=== PATIENT | female | born 1990 | race African-American/Black ===

== ENCOUNTER 2017-08-05 17:40 | Emergency (ER) | payer OTHER ==
[2017-08-05] MEDS: IV NORMAL SALINE 1000ML BAG 1,000 ML IV ×2 (18:48)
[2017-08-05] MEDS: ONDANSETRON PF 4 MG/2 ML VIAL. IV ×2 (18:48)
[2017-08-05 18:49] LABS: BASO % 0 % (0-3); EOS % 0 % (0-3); HEMATOCRIT 40.3 % (36.0-47.0); HEMOGLOBIN 13.5 g/dL (12.0-15.5); LYMPH # 0.8 x10^3/uL (1.0-4.8); LYMPH % 8 % (24-48); MEAN CORPUSCULAR HEMOGLOBIN 27 pg (25-35); MEAN CORPUSCULAR HGB CONC 34 g/dL (31-37); MEAN CORPUSCULAR VOLUME 82 fL (79-100); MONO # 0.3 x10^3/uL (0.0-1.1); MONO % 3 % (0-9); NEUT # 9.1 x10^3uL (1.8-7.7); NEUT % 89 % (31-73); PLATELET COUNT 335 x10^3/uL (140-400); RED BLOOD COUNT 4.94 x10^6/uL (3.50-5.40); RED CELL DISTRIBUTION WIDTH 16.4 % (11.5-14.5); WHITE BLOOD COUNT 10.2 x10^3/uL (4.0-11.0)
[2017-08-05] MEDS: FAMOTIDINE 20 MG/2 ML VIAL IVP ×2 (18:49)
[2017-08-05 18:50] LABS: ADD MAN DIFF? YES
[2017-08-05 18:58] LABS: ANION GAP 18 (6-14); BLOOD UREA NITROGEN 8 mg/dL (7-20); BUN/CREATININE RATIO 8 (6-20); CALCIUM 9.6 mg/dL (8.5-10.1); CARBON DIOXIDE 20 mmol/L (21-32); CHLORIDE 100 mmol/L (98-107); GFR 80.5; GLUCOSE 139 mg/dL (70-99); POTASSIUM 3.8 mmol/L (3.5-5.1); SODIUM 138 mmol/L (136-145)
[2017-08-05 19:04] LABS: ALBUMIN 3.7 g/dL (3.4-5.0); ALBUMIN/GLOBULIN RATIO 0.7 (1.0-1.7); ALK PHOS 100 U/L (46-116); ALT (SGPT) 22 U/L (14-59); AST (SGOT) 25 U/L (15-37); LIPASE 48 U/L (73-393); TOTAL BILIRUBIN 0.3 mg/dL (0.2-1.0); TOTAL PROTEIN 8.7 g/dL (6.4-8.2)
[2017-08-05 19:19] LABS: % BANDS 1 % (0-9); % LYMPHS 6 % (24-48); % MONOS 1 % (0-10); % SEGS 92 % (35-66); PLT ESTIMATE ADEQUATE (ADEQUATE); TOXIC VACUOLATION SLIGHT
[2017-08-05] MEDS: LIDO:MAALOX:DONNATAL 1:1:1 15 ML SINGLE DOSE SWSW ×2 (19:41)
[2017-08-05] MEDS: KETOROLAC 30 MG/ML INJ. IV ×2 (19:41)
[2017-08-05] MEDS: fentaNYL PF VIAL 100 MCG/2 ML VIAL IV ×2 (20:24)
== END 2017-08-05 21:26 | disposition home or self-care (01) ==
LOC: ER 17:40
DX: A08.4 Viral intestinal infection, unspecified (principal)
CPT/HCPCS: 36415; 71045; 80053; 83690; 85007; 85025; 93005; 96361; 96374; 96375; 99285-25; J1885; J2060; J2405; J3010; J7030; S0028

== ENCOUNTER 2018-01-25 15:41 | Emergency (ER) | payer OTHER ==
[2018-01-25 17:14] LABS: URINE HCG POC HCG NEGATIVE (Negative)
[2018-01-25 17:19] LABS: BASO # 0.1 x10^3/uL (0.0-0.2); BASO % 1 % (0-3); EOS % 0 % (0-3); HEMATOCRIT 41.4 % (36.0-47.0); HEMOGLOBIN 13.7 g/dL (12.0-15.5); LYMPH # 1.2 x10^3/uL (1.0-4.8); LYMPH % 11 % (24-48); MEAN CORPUSCULAR HEMOGLOBIN 27 pg (25-35); MEAN CORPUSCULAR HGB CONC 33 g/dL (31-37); MEAN CORPUSCULAR VOLUME 82 fL (79-100); MONO # 0.3 x10^3/uL (0.0-1.1); MONO % 3 % (0-9); NEUT # 9.8 x10^3uL (1.8-7.7); NEUT % 86 % (31-73); PLATELET COUNT 365 x10^3/uL (140-400); RED BLOOD COUNT 5.04 x10^6/uL (3.50-5.40); RED CELL DISTRIBUTION WIDTH 17.3 % (11.5-14.5); WHITE BLOOD COUNT 11.3 x10^3/uL (4.0-11.0)
[2018-01-25 17:20] LABS: ADD MAN DIFF? YES
[2018-01-25] MEDS: ONDANSETRON PF 4 MG/2 ML VIAL. IV (17:20)
[2018-01-25] MEDS: IV NORMAL SALINE 1000ML BAG 1,000 ML IV (17:20)
[2018-01-25 17:21] LABS: BILIRUBIN,URINE NEGATIVE (NEG); CLARITY,URINE CLEAR; COLOR,URINE YELLOW; GLUCOSE,URINE NEGATIVE (NEG); NITRITE,URINE NEGATIVE (NEG); PROTEIN,URINE 100 mg/dL (NEG-TRACE); UROBILINOGEN,URINE 0.2 mg/dL (0.2 mg/dL)
[2018-01-25] MEDS: PANTOPRAZOLE IV PUSH 40 MG VIAL. IVP (17:22)
[2018-01-25 17:25] LABS: BACTERIA,URINE 0 /HPF (0-FEW); RBC,URINE 0 /HPF (0-2); SQUAMOUS EPITHELIAL CELL,UR FEW /LPF
[2018-01-25 17:34] LABS: AMPHETAMINE/METHAMPHETAMINE NEG (NEG); BARBITURATES NEG (NEG); BENZODIAZEPINES NEG (NEG); CANNABINOIDS POS (NEG); COCAINE NEG (NEG); ETHANOL, URINE NEG (NEG); METHADONE NEG (NEG); OPIATES NEG (NEG); PHENCYCLIDINE NEG (NEG)
[2018-01-25 17:35] LABS: ANION GAP 18 (6-14); BLOOD UREA NITROGEN 11 mg/dL (7-20); BUN/CREATININE RATIO 11 (6-20); CALCIUM 9.8 mg/dL (8.5-10.1); CARBON DIOXIDE 20 mmol/L (21-32); CHLORIDE 102 mmol/L (98-107); GFR 80.5; GLUCOSE 119 mg/dL (70-99); POTASSIUM 3.4 mmol/L (3.5-5.1); SODIUM 140 mmol/L (136-145)
[2018-01-25 17:36] LABS: % LYMPHS 14 % (24-48); % MONOS 2 % (0-10); % SEGS 84 % (35-66); PLT ESTIMATE ADEQUATE (ADEQUATE)
[2018-01-25 17:36] LABS: ETHANOL < 10 mg/dL (0-10)
[2018-01-25 17:37] LABS: ANISOCYTOSIS SLIGHT
[2018-01-25 17:40] LABS: ALBUMIN 3.9 g/dL (3.4-5.0); ALBUMIN/GLOBULIN RATIO 0.7 (1.0-1.7); ALK PHOS 93 U/L (46-116); ALT (SGPT) 23 U/L (14-59); AST (SGOT) 19 U/L (15-37); LIPASE 67 U/L (73-393); TOTAL BILIRUBIN 0.6 mg/dL (0.2-1.0); TOTAL PROTEIN 9.2 g/dL (6.4-8.2)
[2018-01-25] MEDS: LIDO:MAALOX 1:1 20 ML SINGLE DOSE. SWSW (18:41)
[2018-01-25] MEDS: fentaNYL PF VIAL 100 MCG/2 ML VIAL IV (18:41)
== END 2018-01-25 19:30 | disposition home or self-care (01) ==
LOC: ER 15:41
DX: T62.91XA Toxic effect of unspecified noxious substance eaten as food, accidental (unintentional), initial encounter (principal); K29.00 Acute gastritis without bleeding; Y92.89 Other specified places as the place of occurrence of the external cause
CPT/HCPCS: 36415; 80053; 80307; 81001; 81025; 83690; 85007; 85025; 96361; 96374; 96375; 99285-25; C9113; G0480; J2405; J3010; J7030

== ENCOUNTER 2018-01-26 22:25 | Inpatient (IN) | payer OTHER ==
[2018-01-26 23:13] LABS: BILIRUBIN,URINE SMALL (NEG); CLARITY,URINE CLEAR; COLOR,URINE YELLOW; GLUCOSE,URINE NEGATIVE (NEG); NITRITE,URINE NEGATIVE (NEG); PH,URINE 6.5; PROTEIN,URINE NEGATIVE (NEG-TRACE)
[2018-01-26 23:18] LABS: BACTERIA,URINE MODERATE /HPF (0-FEW); RBC,URINE OCC /HPF (0-2); SQUAMOUS EPITHELIAL CELL,UR MOD /LPF
[2018-01-26 23:19] LABS: BARBITURATES NEG (NEG); BENZODIAZEPINES NEG (NEG); CANNABINOIDS POS (NEG); COCAINE NEG (NEG); METHADONE NEG (NEG); OPIATES NEG (NEG); PHENCYCLIDINE NEG (NEG)
[2018-01-26 23:20] LABS: AMPHETAMINE/METHAMPHETAMINE NEG (NEG); ETHANOL, URINE NEG (NEG)
[2018-01-26 23:29] LABS: ADD MAN DIFF? NO
[2018-01-26 23:31] LABS: BASO # 0.1 x10^3/uL (0.0-0.2); BASO % 1 % (0-3); EOS % 0 % (0-3); HEMATOCRIT 41.1 % (36.0-47.0); HEMOGLOBIN 13.6 g/dL (12.0-15.5); LYMPH # 4.1 x10^3/uL (1.0-4.8); LYMPH % 35 % (24-48); MEAN CORPUSCULAR HEMOGLOBIN 28 pg (25-35); MEAN CORPUSCULAR HGB CONC 33 g/dL (31-37); MEAN CORPUSCULAR VOLUME 83 fL (79-100); MONO # 0.8 x10^3/uL (0.0-1.1); MONO % 7 % (0-9); NEUT # 6.6 x10^3uL (1.8-7.7); NEUT % 57 % (31-73); PLATELET COUNT 348 x10^3/uL (140-400); RED BLOOD COUNT 4.94 x10^6/uL (3.50-5.40); RED CELL DISTRIBUTION WIDTH 17.4 % (11.5-14.5); WHITE BLOOD COUNT 11.5 x10^3/uL (4.0-11.0)
[2018-01-26] MEDS: MORPHINE SULFATE 10 MG/ML VIAL. IV (23:36)
[2018-01-26] MEDS: LIDO:MAALOX 1:1 20 ML SINGLE DOSE. SWSW (23:36)
[2018-01-26] MEDS: IV NORMAL SALINE 1000ML BAG 1,000 ML IV (23:36)
[2018-01-26] MEDS: ASPIRIN 325 MG TABLET PO (23:37)
[2018-01-26] MEDS: PANTOPRAZOLE IV PUSH 40 MG VIAL. IVP (23:37)
[2018-01-26 23:44] LABS: D-DIMER < 0.27 ug/mlFEU (0.00-0.50)
[2018-01-26 23:47] LABS: ALBUMIN 3.6 g/dL (3.4-5.0); ALBUMIN/GLOBULIN RATIO 0.8 (1.0-1.7); ALK PHOS 80 U/L (46-116); ALT (SGPT) 22 U/L (14-59); ANION GAP 16 (6-14); AST (SGOT) 22 U/L (15-37); BLOOD UREA NITROGEN 16 mg/dL (7-20); BUN/CREATININE RATIO 16 (6-20); CALCIUM 9.8 mg/dL (8.5-10.1); CARBON DIOXIDE 21 mmol/L (21-32); CHLORIDE 101 mmol/L (98-107); GFR 80.5; GLUCOSE 103 mg/dL (70-99); LIPASE 103 U/L (73-393); MAGNESIUM 1.6 mg/dL (1.8-2.4); SODIUM 138 mmol/L (136-145); TOTAL BILIRUBIN 0.5 mg/dL (0.2-1.0); TOTAL PROTEIN 8.1 g/dL (6.4-8.2)
[2018-01-26 23:49] LABS: TROPONINI < 0.017 ng/mL (0.000-0.055)
[2018-01-26 23:49] LABS: POTASSIUM 2.7 mmol/L (3.5-5.1)
[2018-01-27 00:01] LABS: ETHANOL < 10 mg/dL (0-10)
[2018-01-27 00:13] LABS: THYROID STIM HORMONE (TSH) 1.035 uIU/mL (0.358-3.74)
[2018-01-27 00:18] LABS: NT-PRO BNP 86 pg/mL (0-124)
[2018-01-27 00:18] LABS: CKMB MASS < 0.5 ng/mL (0.0-3.6); CREATINE KINASE 130 U/L (26-192)
[2018-01-27] MEDS: POTASSIUM CHLORIDE 20 MEQ TABLET.ER. PO (00:46)
[2018-01-27] MEDS ORDERED: ONDANSETRON PF 4 MG/2 ML VIAL. IV ×2 (01:00→08:45)
[2018-01-27] MEDS ORDERED: PROCHLORPERAZINE 10 MG/2 ML VIAL. IV (01:00)
[2018-01-27] MEDS ORDERED: CONTRAST GIVEN. MC (01:15)
[2018-01-27] MEDS: IOHEXOL 300 MG/ML 100ML VIAL. IV (01:31)
[2018-01-27] MEDS: HALOPERIDOL LACTATE 5 MG/ML VIAL. IVP (01:34)
[2018-01-27] MEDS: PANTOPRAZOLE IV PUSH 40 MG VIAL. IVP ×2 (02:21→09:02)
[2018-01-27] MEDS: MORPHINE SULFATE 4 MG/ML DISP.SYRIN. IV (05:33)
[2018-01-27] MEDS ORDERED: ONDANSETRON ODT 4 MG TAB.RAPDIS. PO (08:45)
[2018-01-27] MEDS ORDERED: ACETAMINOPHEN 500 MG TABLET PO (08:45)
[2018-01-27] MEDS: POTASSIUM CL 40MEQ D5-0.45NACL 1,000 ML IV ×2 (09:02→22:20)
[2018-01-27] MEDS: MAGNESIUM SULFATE 2GM 50 ML IV (09:03)
[2018-01-27 11:01] LABS: SEDIMENTATION RATE 20 (0-25)
[2018-01-27] MEDS ORDERED: levOFLOXacin PER PHARMACY. MC (12:15)
[2018-01-27] MEDS: ONDANSETRON PF 4 MG/2 ML VIAL. IV (15:41)
[2018-01-27] MEDS: diphenhydrAMINE HCL 25 MG CAPSULE PO (22:20)
[2018-01-27] MEDS: ZOLPIDEM 5 MG TABLET. PO (22:20)
[2018-01-28] MEDS: oxyCODONE/APAP 5/325 1 TAB TABLET PO (01:18)
[2018-01-28 04:43] LABS: ADD MAN DIFF? NO
[2018-01-28 05:21] LABS: BASO % 1 % (0-3); EOS # 0.1 x10^3/uL (0.0-0.7); EOS % 2 % (0-3); HEMATOCRIT 35.1 % (36.0-47.0); HEMOGLOBIN 11.7 g/dL (12.0-15.5); LYMPH # 4.2 x10^3/uL (1.0-4.8); LYMPH % 55 % (24-48); MEAN CORPUSCULAR HEMOGLOBIN 28 pg (25-35); MEAN CORPUSCULAR HGB CONC 33 g/dL (31-37); MEAN CORPUSCULAR VOLUME 85 fL (79-100); MONO # 0.4 x10^3/uL (0.0-1.1); MONO % 5 % (0-9); NEUT # 2.9 x10^3uL (1.8-7.7); NEUT % 38 % (31-73); PLATELET COUNT 269 x10^3/uL (140-400); RED BLOOD COUNT 4.15 x10^6/uL (3.50-5.40); RED CELL DISTRIBUTION WIDTH 17.7 % (11.5-14.5); WHITE BLOOD COUNT 7.7 x10^3/uL (4.0-11.0)
[2018-01-28 05:31] LABS: ALBUMIN 2.6 g/dL (3.4-5.0); ALBUMIN/GLOBULIN RATIO 0.7 (1.0-1.7); ALK PHOS 64 U/L (46-116); ALT (SGPT) 16 U/L (14-59); ANION GAP 9 (6-14); AST (SGOT) 13 U/L (15-37); BLOOD UREA NITROGEN 4 mg/dL (7-20); BUN/CREATININE RATIO 6 (6-20); CALCIUM 8.1 mg/dL (8.5-10.1); CARBON DIOXIDE 23 mmol/L (21-32); CHLORIDE 107 mmol/L (98-107); CREATININE 0.7 mg/dL (0.6-1.0); GFR 121.5; GLUCOSE 95 mg/dL (70-99); POTASSIUM 4.1 mmol/L (3.5-5.1); SODIUM 139 mmol/L (136-145); TOTAL BILIRUBIN 0.2 mg/dL (0.2-1.0); TOTAL PROTEIN 6.2 g/dL (6.4-8.2)
[2018-01-28] MEDS: PANTOPRAZOLE IV PUSH 40 MG VIAL. IVP (06:37)
[2018-01-28] MEDS: POTASSIUM CL 40MEQ D5-0.45NACL 1,000 ML IV ×3 (06:40→22:37)
[2018-01-28] MEDS: SINCALIDE 1.45 MCG in IV NORMAL SALINE 50ML 30 ML IV (09:47)
[2018-01-28] MEDS: diphenhydrAMINE HCL 25 MG CAPSULE PO ×2 (14:51→20:06)
[2018-01-28] MEDS: LACTOBACILLUS RHAMNOSUS GG 1 CAPSULE. PO (21:19)
[2018-01-29] MEDS: diphenhydrAMINE HCL 25 MG CAPSULE PO ×3 (02:11→23:24)
[2018-01-29] MEDS: LACTOBACILLUS RHAMNOSUS GG 1 CAPSULE. PO ×2 (07:25→20:45)
[2018-01-29] MEDS: PANTOPRAZOLE IV PUSH 40 MG VIAL. IVP (08:25)
[2018-01-29] MEDS ORDERED: SURGICEL HEMOSTAT 2X3 EACH. (09:08)
[2018-01-29] MEDS ORDERED: ONDANSETRON PF 4 MG/2 ML VIAL. IV (10:15)
[2018-01-29] MEDS ORDERED: fentaNYL PF VIAL 100 MCG/2 ML VIAL IV (10:15)
[2018-01-29] MEDS ORDERED: LIDOCAINE 1% PF 2 ML VIAL. ID (10:15)
[2018-01-29] MEDS: POTASSIUM CL 40MEQ D5-0.45NACL 1,000 ML IV ×2 (11:38→21:00)
[2018-01-29] MEDS: MORPHINE SULFATE 2 MG/ML DISP.SYRIN. IV ×5 (11:55→20:46)
[2018-01-29] MEDS: IV RINGERS,LACTATED 1000ML 1,000 ML IV (13:33)
[2018-01-29] MEDS ORDERED: MIDAZOLAM HCL/PF 2 MG/2 ML VIAL. (13:41)
[2018-01-29] MEDS ORDERED: PROPOFOL 20 ML IV (13:41)
[2018-01-29] MEDS ORDERED: LIDOCAINE 2% PF Vial for OR 5 ML VIAL. (13:41)
[2018-01-29] MEDS ORDERED: fentaNYL PF VIAL 250 MCG/5 ML VIAL (13:41)
[2018-01-29] MEDS ORDERED: ROCURONIUM 50 MG/5 ML VIAL. (13:42)
[2018-01-29] MEDS ORDERED: DEXAMETHASONE SOD PHOS 20 MG/5 ML VIAL. (14:31)
[2018-01-29] MEDS ORDERED: DESFLURANE 61 TO 120 MINUTES IH (14:31)
[2018-01-29] MEDS ORDERED: ONDANSETRON PF 4 MG/2 ML VIAL. (14:31)
[2018-01-29] MEDS ORDERED: SEVOFLURANE 31 TO 60 MINUTES. IH (14:31)
[2018-01-29] MEDS: IOHEXOL 300 MG/ML 100ML VIAL. IV (14:55)
[2018-01-29] MEDS: HEPARIN 1,000 UNIT in IV NORMAL SALINE 1,000 ML for SURG PERIOP IRR (14:55)
[2018-01-29] MEDS: BUPIVACAINE-EPI 0.5%-1:200000 50 ML VIAL. (14:55)
[2018-01-29] MEDS ORDERED: GLYCOPYRROLATE 1 MG/5 ML VIAL. (15:08)
[2018-01-29] MEDS ORDERED: NEOSTIGMINE METHYLSULFATE 5 MG/5 ML SYRINGE. (15:08)
[2018-01-29] MEDS ORDERED: KETOROLAC 30 MG/ML INJ FOR OR. INJ (15:09)
[2018-01-29] MEDS: BISACODYL 10 MG SUPP.RECT. (15:29)
[2018-01-29] MEDS ORDERED: fentaNYL PF VIAL 100 MCG/2 ML VIAL (15:51)
[2018-01-29] MEDS ORDERED: MORPHINE SULFATE 2 MG/ML DISP.SYRIN. (15:51)
[2018-01-29] MEDS ORDERED: PROCHLORPERAZINE 10 MG/2 ML VIAL. (15:51)
[2018-01-29] MEDS: fentaNYL PF VIAL 100 MCG/2 ML VIAL IV ×2 (15:53→15:58)
[2018-01-29] MEDS: PROCHLORPERAZINE 10 MG/2 ML VIAL. IV (15:58)
[2018-01-29] MEDS ORDERED: 0.9 % SODIUM CHLORIDE 10 ML DISP.SYRIN. IV (16:30)
[2018-01-29] MEDS ORDERED: DEXTROSE 50% 25 GM / 50ML DISP.SYRIN. IV (16:30)
[2018-01-29] MEDS: DOCUSATE SODIUM 100 MG CAPSULE. PO (20:45)
[2018-01-30] MEDS: MORPHINE SULFATE 2 MG/ML DISP.SYRIN. IV (00:17)
[2018-01-30] MEDS: diphenhydrAMINE HCL 25 MG CAPSULE PO ×2 (05:46→11:44)
[2018-01-30] MEDS: POTASSIUM CL 40MEQ D5-0.45NACL 1,000 ML IV (07:00)
[2018-01-30] MEDS: PANTOPRAZOLE IV PUSH 40 MG VIAL. IVP (08:02)
[2018-01-30] MEDS: LACTOBACILLUS RHAMNOSUS GG 1 CAPSULE. PO (08:02)
[2018-01-30] MEDS: HYDROcodone/APAP 5/325MG 1 TAB TABLET PO ×2 (08:02→16:06)
[2018-01-30] MEDS: DOCUSATE SODIUM 100 MG CAPSULE. PO (08:02)
[2018-01-30] MEDS: oxyCODONE/APAP 5/325 1 TAB TABLET PO (13:20)
== END 2018-01-30 17:15 | disposition home or self-care (01) | DRG 417 ==
LOC: 4 NORTH 01-27 00:37 → ER 22:25 → 4 NORTH 01-27 02:15
PROC: 0FT44ZZ Resection of Gallbladder, Percutaneous Endoscopic Approach (ICD-10-PCS; principal; 2018-01-29 13:30)
PROC: BF101ZZ Fluoroscopy of Bile Ducts using Low Osmolar Contrast (ICD-10-PCS; 2018-01-29 13:30)
DX: K82.8 Other specified diseases of gallbladder (principal); N17.0 Acute kidney failure with tubular necrosis; N39.0 Urinary tract infection, site not specified; R65.10 Systemic inflammatory response syndrome (SIRS) of non-infectious origin without acute organ dysfunction; K81.9 Cholecystitis, unspecified; E87.6 Hypokalemia; R06.4 Hyperventilation; K21.9 Gastro-esophageal reflux disease without esophagitis; R07.9 Chest pain, unspecified; F12.90 Cannabis use, unspecified, uncomplicated; K52.9 Noninfective gastroenteritis and colitis, unspecified; Z82.49 Family history of ischemic heart disease and other diseases of the circulatory system; Z83.3 Family history of diabetes mellitus; Z79.899 Other long term (current) drug therapy; Z79.82 Long term (current) use of aspirin; Z98.51 Tubal ligation status; F41.9 Anxiety disorder, unspecified
CPT/HCPCS: 36415; 71045; 74177; 74300; 76700; 78226; 80053; 80307; 81001; 81025; 82553; 83690; 83735; 83880; 84443; 84484; 85007; 85025; 85379; 85651; 87086; 93005; 96365; 96367; 96374; 96375; 99285; 99285-25; A7015; A9537; C9113; G0480; J0690; J0780; J1100; J1630; J1644; J1885; J1956; J2001; J2250; J2270; J2405; J2704; J2710; J2805; J3010; J3475; J3490; J7030; J7042; J7120; Q0163; Q9967